=== PATIENT | female | born 1960 | race African-American/Black ===

== ENCOUNTER 2017-10-02 22:28 | Observation (INO) | payer OTHER ==
[~2017-10-02] VITALS: Ht 162.6 cm; Wt 162.4 kg
[~2017-10-02 22:28] MED LIST: ASCORBIC ACID500 M3 PO; AVAPRO300 MG PO; CARAFATE1 GM PO; COLACE100 MG PO; CRESTOR10 MG PO; CYCLOBENZAPRINE10 MG PO; D3 DOTS2000 UNIT; FERROUS SULFAT324 MG PO; FLAX SEED OIL1000 MG PO; FLEXERIL10 MG PO; FLUTICASONE PRO16 GM NS; FOLIC ACID1 MG PO; GEMFIBROZIL600 MG PO; HYDROCHLOROTHIA25 MG PO; INDOMETHACIN50 MG PO; IRBESARTAN150 MG PO; MAGNESIUM400 MG PO; MAXIMUM DAILY1 EACH PO; METFORMIN HCL500 MG PO; METOPROLOL SUCC25 MG PO; NAPROSYN500 MG PO; NEXIUM40 MG PO; NITROSTAT0.4 MG SL; NORCO 5-325 TA1 EACH PO; OMEGA 3 1,0001 EACH PO; PANTOPRAZOLE SO40 MG PO; PATANOL5 ML OD; PROZAC20 MG PO; RIZATRIPTAN10 MG PO; SUCRALFATE1 GM PO; TRAMADOL HCL50 MG; TRAMADOL HCL50 MG PO
[2017-10-02] MEDS ORDERED: GABAPENTIN100 MG PO (22:45)
[2017-10-02] MEDS ORDERED: RIZATRIPTAN10 M1 PO (22:47)
[2017-10-02] MEDS ORDERED: TOPROL XL25 MG PO (22:47)
[2017-10-02] MEDS ORDERED: VITAMIN B-12500 MCG PO (22:51)
[2017-10-02] MEDS ORDERED: PANTOPRAZOLE SO20 MG PO (22:53)
[2017-10-03] MEDS ORDERED: IBUPROFEN600 MG PO (09:20)
[2017-10-03] MEDS ORDERED: OLOPATADINE HCL5 ML OPTH (09:28)
[2017-10-03] MEDS ORDERED: HYDROCHLOROTH12.5 M1 PO (09:28)
[2017-10-04] MEDS ORDERED: AMOX TR-K CLV1 EAC1 PO (10:11)
[2017-10-04] MEDS ORDERED: ASPIRIN EC81 MG PO (10:12)
[2017-10-04] MEDS ORDERED: PSEUDOEPHEDRIN120 MG PO (10:12)
[2017-10-04] MEDS ORDERED: BENZONATATE100 MG PO (10:12)
[2017-10-04] MEDS ORDERED: GUAIFENESIN-CODE5 ML PO (10:13)
[2017-10-04] MEDS ORDERED: FLUTICASONE PRO16 GM NAS (10:13)
[2017-10-04] MEDS ORDERED: PREDNISONE20 MG PO (10:14)
[2017-10-04] MEDS ORDERED: COMBIVENT RESPIM4 GM INH (10:27)
--- NOTE | 2017-10-04 15:28 | EKG ---
[facility] [address] [place], [place] [address] Signed Sinus tachycardia with short IN Otherwise normal ECG No previous ECGs available Confirmed by ADDIE SMITH MD ([id number]) on 10/04/2017 3:28:17 PM Electronically Signed By: ADDIE SMITH MD 10/04/17 1528 PATIENT NAME: DAYA BARTLETT Electrocardiogram DATE OF : 62 PHYSICIAN: ADDIE SMITH MD REPORT #: [id number] REPORT IS CONFIDENTIAL AND NOT TO BE RELEASED WITHOUT AUTHORIZATION
== END 2017-10-04 12:45 | disposition home or self-care (01) ==
LOC: ED 22:28 → MS 22:30
PROVIDERS: ADMIT Internal Medicine
DX: J20.9 Acute bronchitis, unspecified (principal); J01.10 Acute frontal sinusitis, unspecified; E66.01 Morbid (severe) obesity due to excess calories; E11.9 Type 2 diabetes mellitus without complications; I10 Essential (primary) hypertension; G47.33 Obstructive sleep apnea (adult) (pediatric); G43.909 Migraine, unspecified, not intractable, without status migrainosus; K21.9 Gastro-esophageal reflux disease without esophagitis; I25.10 Atherosclerotic heart disease of native coronary artery without angina pectoris; R94.39 Abnormal result of other cardiovascular function study; Z68.44 Body mass index [BMI] 60.0-69.9, adult; Z79.84 Long term (current) use of oral hypoglycemic drugs; Z79.899 Other long term (current) drug therapy; Z88.1 Allergy status to other antibiotic agents; Z88.2 Allergy status to sulfonamides
CPT/HCPCS: 71045; 80053; 83690; 83880; 84484; 85025; 87070; 87205; 93005; 93010; 94640; 94644; 94660; 94762; 96372; 96374; 99285; G0378; J1650; J2930; J7512

== ENCOUNTER 2018-02-20 19:17 | Emergency (ER) | payer OTHER ==
[~2018-02-20] VITALS: Ht 162.6 cm; Wt 162.4 kg
[~2018-02-20 19:17] MED LIST changes: +AMOX TR-K CLV1 EAC1 PO; +ASPIRIN EC81 MG PO; +BENZONATATE100 MG PO; +COMBIVENT RESPIM4 GM INH; +FLUTICASONE PRO16 GM NAS; +GABAPENTIN100 MG PO; +GUAIFENESIN-CODE5 ML PO; +HYDROCHLOROTH12.5 M1 PO; +IBUPROFEN600 MG PO; +OLOPATADINE HCL5 ML OPTH; +PANTOPRAZOLE SO20 MG PO; +PREDNISONE20 MG PO; +PSEUDOEPHEDRIN120 MG PO; +RIZATRIPTAN10 M1 PO; +TOPROL XL25 MG PO; +VITAMIN B-12500 MCG PO
[2018-02-20] MEDS ORDERED: PREDNISONE10 MG PO (23:33)
--- NOTE | 2018-02-21 08:49 | EKG ---
[facility] [address] [place], [place] [address] Signed Sinus tachycardia Otherwise normal ECG When compared with ECG of 02-OCT-2017 22:36, No significant change was found Confirmed by ADDIE SMITH MD ([id number]) on 02/21/2018 8:49:41 AM Electronically Signed By: ADDIE SMITH MD 02/21/18 0849 PATIENT NAME: DAYA BARTLETT Electrocardiogram DATE OF : 62 PHYSICIAN: ADDIE SMITH MD REPORT #: [id number] REPORT IS CONFIDENTIAL AND NOT TO BE RELEASED WITHOUT AUTHORIZATION
== END 2018-02-20 23:47 | disposition home or self-care (01) ==
LOC: ED 19:17
DX: R07.89 Other chest pain (principal); E11.9 Type 2 diabetes mellitus without complications; I10 Essential (primary) hypertension; Z87.891 Personal history of nicotine dependence; Z88.1 Allergy status to other antibiotic agents; Z88.8 Allergy status to other drugs, medicaments and biological substances; Z79.899 Other long term (current) drug therapy
CPT/HCPCS: 36415; 71045; 80053; 84484; 85025; 93005; 93010; 96374; 96375; 99284; J2405; J2930; J3010

== ENCOUNTER 2021-02-25 15:00 | Emergency (ER) | payer OTHER ==
[~2021-02-25] VITALS: Ht 162.6 cm; Wt 164.7 kg
[~2021-02-25 15:00] MED LIST changes: +NORCO 7.5-3251 EACH PO; +PREDNISONE10 MG PO; +SINGULAIR10 MG PO; +SYMBICORT 16010.2 GM INH
--- OUTSIDE RECORDS SUMMARY | 2021-02-25 15:02 | XMS ---
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 EAndrez VISIT COUNT (12 MO.) 1 [facility] 1 [facility] TOTAL 2 NOTE: Visits indicate total known visits. ED/UCC VISIT TRACKING (12 MO.) [facility] COMPLAINT: - BODY ACHES [facility] DIAGNOSES: - Unspecified asthma with (acute) exacerbation - Shortness of Breath - Cough - Shortness of breath - sob INPATIENT VISIT TRACKING (12 MO.) No inpatient visits to display in this time frame [email or web address]
[2021-02-25] MEDS ORDERED: ALBUTEROL2.5 MG/3 M INH (18:07)
[2021-02-25] MEDS ORDERED: PROAIR RESPICL90 MCG INH (18:08)
[2021-02-25] MEDS ORDERED: PREDNISONE10 MG PO (18:09)
[2021-02-25] MEDS ORDERED: VITAMIN B-12500 MCG PO (18:11)
[2021-02-25] MEDS ORDERED: VITAMIN D3125 MC1 PO (18:11)
[2021-02-25] MEDS ORDERED: FLUTICASONE PRO16 GM NAS (18:12)
[2021-02-25] MEDS ORDERED: FEXOFENADINE H180 MG PO (18:12)
[2021-02-25] MEDS ORDERED: PREDNISONE20 MG PO (18:13)
[2021-02-25] MEDS ORDERED: IBUPROFEN600 MG PO (18:13)
[2021-02-25] MEDS ORDERED: MAGNESIUM OXID400 M1 PO (18:14)
[2021-02-25] MEDS ORDERED: METOPROLOL SUCC25 MG PO (18:14)
[2021-02-25] MEDS ORDERED: OMEGA-3 FISH O1 EAC4 PO (18:14)
[2021-02-25] MEDS ORDERED: CYCLOBENZAPRINE10 MG PO (21:34)
== END 2021-02-25 22:09 | disposition home or self-care (01) ==
LOC: ED 15:00
DX: M54.42 Lumbago with sciatica, left side (principal); E11.9 Type 2 diabetes mellitus without complications; I10 Essential (primary) hypertension; G47.30 Sleep apnea, unspecified; Z87.891 Personal history of nicotine dependence; Z88.2 Allergy status to sulfonamides; Z88.1 Allergy status to other antibiotic agents; Z79.899 Other long term (current) drug therapy; Z79.52 Long term (current) use of systemic steroids
CPT/HCPCS: 72100; 72131; 73502; 99284-25

== ENCOUNTER 2023-03-18 21:47 | Emergency (ER) | payer OTHER ==
[~2023-03-18] VITALS: Ht 162.6 cm; Wt 164.7 kg
[~2023-03-18 21:47] MED LIST changes: +ALBUTEROL2.5 MG/3 M INH; +FEXOFENADINE H180 MG PO; +MAGNESIUM OXID400 M1 PO; +OMEGA-3 FISH O1 EAC4 PO; +PROAIR RESPICL90 MCG INH; +VITAMIN D3125 MC1 PO
--- OUTSIDE RECORDS SUMMARY | 2023-03-18 21:51 | XMS ---
PreManage Notification: DAYA BARTLETT Security Photography Coordinator Events No recent Security Events currently on file CRITERIA MET - [facility] CARE PROVIDERS SANTOS GARZA [facility] 11/19/2020-[facility] PHONE: Unknown [facility] 03/01/2021-[facility] PHONE: [phone] Tia has no Care Guidelines for this patient. Care History Medical/Surgical 03/01/2021 [facility] - PATIENT IS [facility] ELIGIBLE, \T\middot;\T\nbsp; PLEASE REFER PATIENT TO [facility] FOR NON EMERGENT MEDICAL NEEDS. \T\middot;\T\nbsp; [facility] CAN SEE PATIENTS SAME DAY FOR APTS IF PATIENT CALLS FIRST THING IN THE MORNING. E.D. VISIT COUNT (12 MO.) 1 ESTEPHANIA Hassan TOTAL 1 NOTE: Visits indicate total known visits. ED/UCC VISIT TRACKING (12 MO.) 03/18/2023 21:48 [facility] [place] TYPE: Emergency COMPLAINT: - CP INPATIENT VISIT TRACKING (12 MO.) No inpatient visits to display in this time frame [id number]
[2023-03-19 00:32] VITALS: BP 110/69
--- NOTE | 2023-03-22 19:36 | EKG ---
[facility] [address] [place], [place] [address] Signed Sinus tachycardia with short NV Otherwise normal ECG When compared with ECG of 20-FEB-2018 19:20, NV interval has decreased Confirmed by LUKE ANDERSON MD ([id number]) on 03/22/2023 7:36:39 PM Electronically Signed By: LUKE ANDERSON 03/22/231935 PATIENT NAME: DAYA BARTLETT Electrocardiogram DATE OF : 62 PHYSICIAN: LUKE ANDERSON REPORT #: [id number] REPORT IS CONFIDENTIAL AND NOT TO BE RELEASED WITHOUT AUTHORIZATION
== END 2023-03-19 00:32 | disposition home or self-care (01) ==
LOC: ED 21:47
DX: J45.901 Unspecified asthma with (acute) exacerbation (principal); I10 Essential (primary) hypertension; E11.9 Type 2 diabetes mellitus without complications; Z87.891 Personal history of nicotine dependence; Z88.2 Allergy status to sulfonamides; Z88.1 Allergy status to other antibiotic agents; Z79.82 Long term (current) use of aspirin; Z79.899 Other long term (current) drug therapy
CPT/HCPCS: 36415; 71045; 80053; 83735; 83880; 84484; 85025; 85379; 93005; 93010; 96374; 99285 25; A9270; J2270

== ENCOUNTER 2023-05-13 19:18 | Emergency (ER) | payer OTHER ==
[~2023-05-13] VITALS: Ht 162.6 cm; Wt 148.8 kg
--- OUTSIDE RECORDS SUMMARY | ~2023-05-13 | XMS | Continuity of Care Document ---
Demographics + + + | Address | [address] | | | [place] [address] | + + + | Preferred Language | Unknown | + + + | Marital Status | Polygamous | + + + | Sikhism Affiliation | Unknown | + + + | Race | Unknown | + + + | Ethnic Group | Not or | + + + Author + + + | Author | [facility] | + + + | Organization | [facility] | + + + | Address | [address] | | | [place] [address] | + + + | Phone | | + + + Care Team Providers + + + + | Care Quality Control Manager Name | Role | Phone | + + + + Unavailable | Unavailable | + + + + Unavailable | Unavailable | + + + + Allergies and Intolerances + + + + + + | date | description | facility | reaction | severity | + + + + + + | (no date) | | [facility] | (no reaction) | (no severity) | | | Sulfamethoxazol | [facility] | | | + + + + + + | (no date) | Tetracycline | [facility] | (no reaction) | (no severity) | | | | [facility] | | | + + + + + + | (no date) | Trimethoprim | [facility] | (no reaction) | (no severity) | | | | [facility] | | | + + + + + + | (no date) | Upset stomach | [facility] | (no reaction) | (no severity) | | | | [facility] | | | + + + + + + | (no date) | Mild | [facility] | (no reaction) | (no severity) | | | | [facility] | | | + + + + + + | (no date) | Trimethoprim | [facility] | (no reaction) | (no severity) | | | | [facility] | | | + + + + + + | (no date) | | [facility] | (no reaction) | (no severity) | | | Sulfamethoxazol | [facility] | | | + + + + + + | (no date) | Tetracycline | [facility] | (no reaction) | (no severity) | | | | [facility] | | | + + + + + + | (no date) | Trimethoprim | [facility] | (no reaction) | (no severity) | | | | [facility] | | | + + + + + + | (no date) | tetracycline | [facility] | (no reaction) | (no severity) | + + + + + + | (no date) | | [facility] | (no reaction) | (no severity) | | | sulfamethoxazol | | | | | | e | | | | + + + + + + | (no date) | trimethoprim | [facility] | (no reaction) | (no severity) | + + + + + + | (no date) | Tetracycline | [facility] | (no reaction) | (no severity) | | | | [facility] | | | + + + + + + | (no date) | | [facility] | (no reaction) | (no severity) | | | Sulfamethoxazol | [facility] | | | + + + + + + Encounters No information. Functional Status No information. Immunizations + + + + | date | description | facility | + + + + | 2023-03-19 00:00 | [facility]al, [facility] | | | Injectable, Preservative | | | | Free | | + + + + Medications + + + + | date | description | facility | + + + + | 2023-03-19 00:00 | FLUOXETINE HCL | [facility] | + + + + | 2017-10-04 00:00 | PSEUDOEPHEDRINE HCL | [facility] | + + + + | 2023-03-19 00:00 | Olopatadine HCl | [facility] | + + + + | 2023-03-19 00:00 | OLOPATADINE HCL 0.1% | [facility] | + + + + | 2017-10-04 00:00 | IPRATROPIUM/ALBUTEROL | [facility] | | | SULFATE | | + + + + | 2023-03-19 00:00 | BUDESONIDE/FORMOTEROL | [facility] | | | FUMARATE | | + + + + | 2023-03-19 00:00 | DOCUSATE SODIUM | [facility] | + + + + | 2023-03-19 00:00 | MONTELUKAST SODIUM | [facility] | + + + + | 2023-03-19 00:00 | ALBUTEROL SULFATE | [facility] | + + + + | 2017-10-04 00:00 | FLUTICASONE PROPIONATE 50 | [facility] | | | MCG | | + + + + | 2023-03-19 00:00 | FLUTICASONE PROPIONATE 50 | [facility] | | | MCG | | + + + + | 2023-03-19 00:00 | FERROUS SULFATE | [facility] | + + + + | 2017-10-04 00:00 | BENZONATATE | [facility] | + + + + | 2023-03-19 00:00 | IBUPROFEN | [facility] | + + + + | 2018-02-20 00:00 | predniSONE | [facility] | + + + + | 2023-03-19 00:00 | predniSONE | [facility] | + + + + | 2023-03-19 00:00 | Magnesium Oxide | [facility] | + + + + | 2023-03-19 00:00 | HYDROCHLOROTHIAZIDE | [facility] | + + + + | 2023-03-19 00:00 | IRBESARTAN | [facility] | + + + + | 2023-03-19 00:00 | NITROGLYCERIN | [facility] | + + + + | 2023-03-19 00:00 | Cholecalciferol (Vitamin | [facility] | | | D3) | | + + + + | 2023-03-19 00:00 | PANTOPRAZOLE SODIUM | [facility] | + + + + | 2023-03-19 00:00 | MAGNESIUM OXIDE | [facility] | + + + + | 2023-03-19 00:00 | FLAXSEED OIL | [facility] | + + + + | 2023-03-19 00:00 | ASCORBIC ACID | [facility] | + + + + | 2017-10-04 00:00 | ASPIRIN | [facility] | + + + + | 2023-03-19 00:00 | FOLIC ACID | [facility] | + + + + | 2023-03-19 00:00 | GABAPENTIN | [facility] | + + + + | 2023-03-19 00:00 | GEMFIBROZIL | [facility] | + + + + | 2017-10-04 00:00 | predniSONE | [facility] | + + + + | 2023-03-19 00:00 | predniSONE | [facility] | + + + + | 2023-03-19 00:00 | RIZATRIPTAN BENZOATE | [facility] | + + + + | 2023-03-19 00:00 | CYANOCOBALAMIN (VITAMIN | [facility] | | | B-12) | | + + + + | 2023-03-19 00:00 | RIZATRIPTAN BENZOATE | [facility] | + + + + | 2023-03-19 00:00 | SUCRALFATE | [facility] | + + + + | 2017-10-04 00:00 | AMOXICILLIN/POTASSIUM CLAV | [facility] | | | | | + + + + | 2023-03-19 00:00 | ALBUTEROL SULFATE | [facility] | + + + + | 2023-03-19 00:00 | CHOLECALCIFEROL (VITAMIN | [facility] | | | D3) | | + + + + | 2021-02-25 00:00 | CYCLOBENZAPRINE HCL | [facility] | + + + + | 2023-03-19 00:00 | CYCLOBENZAPRINE HCL | [facility] | + + + + | 2023-03-19 00:00 | OMEGA-3/DHA/EPA/FISH OIL | [facility] | + + + + | 2023-03-19 00:00 | TRAMADOL HCL | [facility] | + + + + | 2013-11-22 00:00 | HYDROCODONE | [facility] | | | BIT/ACETAMINOPHEN | | + + + + | 2019-04-11 00:00 | HYDROCODONE | [facility] | | | BIT/ACETAMINOPHEN | | + + + + | 2023-03-19 00:00 | METFORMIN HCL | [facility] | + + + + | 2023-03-19 00:00 | METOPROLOL SUCCINATE | [facility] | + + + + | 2023-03-19 00:00 | METOPROLOL SUCCINATE | [facility] | + + + + | 2017-10-04 00:00 | GUAIFENESIN/CODEINE | [facility] | + + + + | 2023-03-19 00:00 | FEXOFENADINE HCL | [facility] | + + + + Problems + + + + | date | description | facility | + + + + | 2015-07-25 00:00 | Peptic disease | [facility] | + + + + | 2016-02-04 00:00 | Chest pain | [facility] | + + + + | 2016-09-24 00:00 | Ankle pain | [facility] | + + + + | 2017-10-04 00:00 | Acute bronchitis with | [facility] | | | bronchospasm | | + + + + | 2022-12-06 10:39 | OTHER NONSPECIFIC ABNORMAL | [facility] | | | FINDING OF LUNG FIELD | | + + + + | 2022-12-06 10:39 | ENCNTR SCREEN FOR | [facility] | | | MALIGNANT NEOPLASM OF | | | | RESPIRATORY ORGANS | | + + + + | 2022-12-06 10:39 | PERSONAL HISTORY OF | [facility] | | | NICOTINE DEPENDENCE | | + + + + | 2023-03-18 21:48 | TYPE 2 DIABETES MELLITUS | [facility] | | | WITHOUT COMPLICATIONS | | + + + + | 2023-03-18 21:48 | Essential (primary) | [facility] | | | hypertension | | + + + + | 2023-03-18 21:48 | UNSPECIFIED ASTHMA WITH | [facility] | | | (ACUTE) EXACERBATION | | + + + + | 2023-03-18 21:48 | SHORTNESS OF BREATH | [facility] | + + + + | 2023-03-18 21:48 | 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 | + + + + Procedures No information. Results/Labs +--------+--------+ +---------+--------+---------+ | test | date | facility | value | unit | notes | +--------+--------+ +---------+--------+---------+ + + | Result panel 1 | + + + + + +--------+ + + | | 2023-03-18 | [facility] | 14.0 | (missing) | (missing) | | (unavailable | 21:57:07 [facility] | | | | + + + +--------+ + + + + | Result panel 2 | + + + + + +--------+ + + | | 2023-03-18 | [facility] | 63.1 | (missing) | (missing) | | (unavailable | [facility]:57:07 [facility] | | | | + + + +--------+ + + + + | Result panel 3 | + + + + + +--------+ + + | | 2023-03-18 | [facility] | 25.9 | (missing) | (missing) | | (unavailable | [facility]:57:07 [facility] | | | | + + + +--------+ + + + + | Result panel 4 | + + + + + +-------+ + + | | 2023-03-18 | [facility] | 5.3 | (missing) | (missing) | | (unavailable | :57:07 | [facility] | | | | + + + +-------+ + + + + | Result panel 5 | + + + + + +-------+ + + | | 2023-03-18 | [facility] | 2.2 | (missing) | (missing) | | (unavailable | [facility]:57:07 [facility] | | | | + + + +-------+ + + + + | Result panel 6 | + + + + + +-------+ + + | | 2023-03-18 | [facility] | 3.5 | (missing) | (missing) | | (unavailable | [facility]:57:07 [facility] | | | | + + + +-------+ + + + + | Result panel 7 | + + + + + +--------+ + + | | 2023-03-18 | [facility] | 0.32 | (missing) | (missing) | | (unavailable | [facility]:57:07 [facility] | | | | + + + +--------+ + + + + | Result panel 8 | + + + + + +-------+---------+ + | | 2023-03-18 | [facility] | 103 | mg/dL | (missing) | | (unavailable | [facility]:57:07 [facility] | | | | + + + +-------+---------+ + + + | Result panel 9 | + + + + + +------+---------+ + | | 2023-03-18 | [facility] | 16 | mg/dL | (missing) | | (unavailable | [facility]:57:07 [facility] | | | | + + + +------+---------+ + + + | Result panel 10 | + + + + + +--------+---------+ + | | 2023-03-18 | [facility] | 1.09 | mg/dL | (missing) | | (unavailable | [facility]:57:07 [facility] | | | | + + + +--------+---------+ + + + | Result panel 11 | + + + + + +------+ + + | | 2023-03-18 | [facility] | 58 | (missing) | (missing) | | (unavailable | [facility]:57:07 [facility] | | | | + + + +------+ + + + + | Result panel 12 | + + + + + +--------+ + + | | 2023-03-18 | [facility] | 5.19 | (missing) | (missing) | | (unavailable | [facility]:57:07 [facility] | | | | + + + +--------+ + + + + | Result panel 13 | + + + + + +---------+ + + | | 2023-03-18 | [facility] | 14.67 | (missing) | (missing) | | (unavailable | [facility]:57:07 [facility] | | | | + + + +---------+ + + + + | Result panel 14 | + + + + + +-------+ + + | | 2023-03-18 | [facility] | 139 | (missing) | (missing) | | (unavailable | [facility]:57:07 [facility] | | | | + + + +-------+ + + + + | Result panel 15 | + + + + + +-------+ + + | | 2023-03-18 | [facility] | 3.9 | (missing) | (missing) | | (unavailable | [facility]:57:07 [facility] | | | | + + + +-------+ + + + + | Result panel 16 | + + + + + +-------+ + + | | 2023-03-18 | [facility] | 102 | (missing) | (missing) | | (unavailable | [facility]:57:07 [facility] | | | | + + + +-------+ + + + + | Result panel 17 | + + + + + +------+ + + | | 2023-03-18 | [facility] | 24 | (missing) | (missing) | | (unavailable | [facility]:57:07 [facility] | | | | + + + +------+ + + + + | Result panel 18 | + + + + + +--------+ + + | | 2023-03-18 | [facility] | 16.9 | (missing) | (missing) | | (unavailable | [facility]:57:07 [facility] | | | | + + + +--------+ + + + + | Result panel 19 | + + + + + +-------+---------+ + | | 2023-03-18 | [facility] | 9.5 | mg/dL | (missing) | | (unavailable | [facility]:57:07 [facility] | | | | + + + +-------+---------+ + + + | Result panel 20 | + + + + + +-------+---------+ + | | 2023-03-18 | [facility] | 1.9 | mg/dL | (missing) | | (unavailable | [facility]:57:07 [facility] | | | | + + + +-------+---------+ + + + | Result panel 21 | + + + + + +-------+ + + | | 2023-03-18 | [facility] | 8.3 | (missing) | (missing) | | (unavailable | [facility]:57:07 [facility] | | | | + + + +-------+ + + + + | Result panel 22 | + + + + + +-------+ + + | | 2023-03-18 | [facility] | 3.6 | (missing) | (missing) | | (unavailable | [facility]:57:07 [facility] | | | | + + + +-------+ + + + + | Result panel 23 | + + + + + +--------+ + + | | 2023-03-18 | [facility] | 13.5 | (missing) | (missing) | | (unavailable | [facility]:57:07 [facility] | | | | + + + +--------+ + + + + | Result panel 24 | + + + + + +-------+ + + | | 2023-03-18 | [facility] | 4.7 | (missing) | (missing) | | (unavailable | [facility]:57:07 [facility] | | | | + + + +-------+ + + + + | Result panel 25 | + + + + + +--------+ + + | | 2023-03-18 | [facility] | 0.77 | (missing) | (missing) | | (unavailable | [facility]:57:07 [facility] | | | | + + + +--------+ + + + + | Result panel 26 | + + + + + +-------+ + + | | 2023-03-18 | [facility] | 0.5 | (missing) | (missing) | | (unavailable | [facility]:57:07 [facility] | | | | + + + +-------+ + + + + | Result panel 27 | + + + + + +------+ + + | | 2023-03-18 | [facility] | 23 | (missing) | (missing) | | (unavailable | :57:07 | [facility] | | | | + + + +------+ + + + + | Result panel 28 | + + + + + +------+ + + | | 2023-03-18 | [facility] | 37 | (missing) | (missing) | | (unavailable | [facility]:57:07 [facility] | | | | + + + +------+ + + + + | Result panel 29 | + + + + + +------+ + + | | 2023-03-18 | [facility] | 89 | (missing) | (missing) | | (unavailable | :57:07 [facility] | | | | + + + +------+ + + + + | Result panel 30 | + + + + + +--------+ + + | | 2023-03-18 | [facility] | 41.7 | (missing) | (missing) | | (unavailable | :57:07 [facility] | | | | + + + +--------+ + + + + | Result panel 31 | + + + + + +--------+ + + | | 2023-03-18 | [facility] | 80.4 | (missing) | (missing) | | (unavailable | [facility]:57:07 [facility] | | | | + + + +--------+ + + + + | Result panel 32 | + + + + + +--------+ + + | | 2023-03-18 | [facility] | 26.0 | (missing) | (missing) | | (unavailable | [facility]:57:07 [facility] | | | | + + + +--------+ + + + + | Result panel 33 | + + + + + +--------+ + + | | 2023-03-18 | [facility] | 32.3 | (missing) | (missing) | | (unavailable | [facility]:57:07 [facility] | | | | + + + +--------+ + + + + | Result panel 34 | + + + + + +--------+ + + | | 2023-03-18 | [facility] | 15.1 | (missing) | (missing) | | (unavailable | [facility]:57:07 [facility] | | | | + + + +--------+ + + + + | Result panel 35 | + + + + + +-------+ + + | | 2023-03-18 | [facility] | 307 | (missing) | (missing) | | (unavailable | [facility]:57:07 [facility] | | | | + + + +-------+ + + + + | Result panel 36 | + + + + + +--------+ + + | | 2023-03-18 | [facility] | <4.0 | (missing) | (missing) | | (unavailable | 23:20:07 | [facility] | | | | + + + +--------+ + + Social History No information. Vital Signs + + + +---------+ | date | measurement | value | units | + + + +---------+ | 2023-03-18 00:00 | BMI | 62.3 | kg/m2 | + + + +---------+ | 2023-03-18 00:00 | height_metric | 162.56 | cm | + + + +---------+ | 2023-03-18 00:00 | height_standard | 64 | in | + + + +---------+ | 2023-03-18 00:00 | weight_metric | 164.65 | kg | + + + +---------+ | 2023-03-18 00:00 | weight_standard | 363 | lb | + + + +---------+ | 2023-03-19 00:00 | BP_diastolic | 69 | mmHg | + + + +---------+ | 2023-03-19 00:00 | BP_systolic | 110 | mmHg | + + + +---------+ | 2023-03-19 00:00 | heart_rate | 81 | /min | + + + +---------+ | 2023-03-19 00:00 | o2_saturation | 92 | % | + + + +---------+ | 2023-03-19 00:00 | respiration_rate | 19 | /min | + + + +---------+ | 2023-03-19 00:00 | temperature_metric | 36.5 | C | | | | | | + + + +---------+ | 2023-03-19 00:00 | | 97.7 | F | | | temperature_standar | | | | | d | | | + + + +---------+"
--- OUTSIDE RECORDS SUMMARY | ~2023-05-13 | XMS | Continuity of Care Document ---
Demographics + + + | Address | [address] | | | [place] [address] | + + + | Preferred Language | Unknown | + + + | Marital Status | Polygamous | + + + | Evangelical Affiliation | Unknown | + + + | Race | Unknown | + + + | Ethnic Group | Not or | + + + Author + + + | Author | [facility] | + + + | Organization | [facility] | + + + | Address | [address] | | | [place] [address] | + + + | Phone | | + + + Care Team Providers + + + + | Care Capacity Analyst Name | Role | Phone | + [...] 2023-03-19 00:00 | Influ[facility], [facility]al, | [facility] | | | Injectable, Preservative | | | | Free | | + + + + Medications + + + + | date | description | facility | + + + + | 2023-03-19 00:00 | FLUOXETINE HCL | [facility] | + + + + | 2017-10-04 00:00 | PSEUDOEPHEDRINE HCL | [facility] | + + + + | 2023-03-19 00:00 | Olopatadine HCl | [facility] | + + + + | 2023-03-19 00:00 | OLOPATADINE HCL 0.1% | [facility] | + + + + | 2017-10-04 00:00 | IPRATROPIUM/ALBUTEROL | [facility] | | | SULFATE | | + + + + | 2023-03-19 00:00 | BUDESONIDE/FORMOTEROL | [facility] | | | FUMARATE | | + + + + | 2023-03-19 00:00 | DOCUSATE SODIUM | [facility] | + + + + | 2023-03-19 00:00 | MONTELUKAST SODIUM | [facility] | + + + + | 2023-03-19 00:00 | ALBUTEROL SULFATE | [facility] | + + + + | 2017-10-04 00:00 | FLUTICASONE PROPIONATE 50 | [facility] | | | MCG | | + + + + | 2023-03-19 00:00 | FLUTICASONE PROPIONATE 50 | [facility] | | | MCG | | + + + + | 2023-03-19 00:00 | FERROUS SULFATE | [facility] | + + + + | 2017-10-04 00:00 | BENZONATATE | [facility] | + + + + | 2023-03-19 00:00 | IBUPROFEN | [facility] | + + + + | 2018-02-20 00:00 | predniSONE | [facility] | + + + + | 2023-03-19 00:00 | predniSONE | [facility] | + + + + | 2023-03-19 00:00 | Magnesium Oxide | [facility] | + + + + | 2023-03-19 00:00 | HYDROCHLOROTHIAZIDE | [facility] | + + + + | 2023-03-19 00:00 | IRBESARTAN | [facility] | + + + + | 2023-03-19 00:00 | NITROGLYCERIN | [facility] | + + + + | 2023-03-19 00:00 | Cholecalciferol (Vitamin | [facility] | | | D3) | | + + + + | 2023-03-19 00:00 | PANTOPRAZOLE SODIUM | [facility] | + + + + | 2023-03-19 00:00 | MAGNESIUM OXIDE | [facility] | + + + + | 2023-03-19 00:00 | FLAXSEED OIL | [facility] | + + + + | 2023-03-19 00:00 | ASCORBIC ACID | [facility] | + + + + | 2017-10-04 00:00 | ASPIRIN | [facility] | + + + + | 2023-03-19 00:00 | FOLIC ACID | [facility] | + + + + | 2023-03-19 00:00 | GABAPENTIN | [facility] | + + + + | 2023-03-19 00:00 | GEMFIBROZIL | [facility] | + + + + | 2017-10-04 00:00 | predniSONE | [facility] | + + + + | 2023-03-19 00:00 | predniSONE | [facility] | + + + + | 2023-03-19 00:00 | RIZATRIPTAN BENZOATE | [facility] | + + + + | 2023-03-19 00:00 | CYANOCOBALAMIN (VITAMIN | [facility] | | | B-12) | | + + + + | 2023-03-19 00:00 | RIZATRIPTAN BENZOATE | [facility] | + + + + | 2023-03-19 00:00 | SUCRALFATE | [facility] | + + + + | 2017-10-04 00:00 | AMOXICILLIN/POTASSIUM CLAV | [facility] | | | | | + + + + | 2023-03-19 00:00 | ALBUTEROL SULFATE | [facility] | + + + + | 2023-03-19 00:00 | CHOLECALCIFEROL (VITAMIN | [facility] | | | D3) | | + + + + | 2021-02-25 00:00 | CYCLOBENZAPRINE HCL | [facility] | + + + + | 2023-03-19 00:00 | CYCLOBENZAPRINE HCL | [facility] | + + + + | 2023-03-19 00:00 | OMEGA-3/DHA/EPA/FISH OIL | [facility] | + + + + | 2023-03-19 00:00 | TRAMADOL HCL | [facility] | + + + + | 2013-11-22 00:00 | HYDROCODONE | [facility] | | | BIT/ACETAMINOPHEN | | + + + + | 2019-04-11 00:00 | HYDROCODONE | [facility] | | | BIT/ACETAMINOPHEN | | + + + + | 2023-03-19 00:00 | METFORMIN HCL | [facility] | + + + + | 2023-03-19 00:00 | METOPROLOL SUCCINATE | [facility] | + + + + | 2023-03-19 00:00 | METOPROLOL SUCCINATE | [facility] | + + + + | 2017-10-04 00:00 | GUAIFENESIN/CODEINE | [facility] | + + + + | 2023-03-19 00:00 | FEXOFENADINE HCL | [facility] | + + + + Problems + + + + | date | description | facility | + + + + | 2015-07-25 00:00 | Peptic disease | [facility] | + + + + | 2016-02-04 00:00 | Chest pain | [facility] | + + + + | 2016-09-24 00:00 | Ankle pain | [facility] | + + + + | 2017-10-04 00:00 | Acute bronchitis with | [facility] | | | bronchospasm | | [...] + + + | 2023-03-18 21:48 | 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
--- OUTSIDE RECORDS SUMMARY | 2023-05-13 19:23 | XMS ---
PreManage Notification: DAYA BARTLETT Security Development Eng Events No recent Security Events currently on file CRITERIA MET - [facility] CARE PROVIDERS [facility] 03/01/2021-[facility] PHONE: [phone] SANTOS GARZA [facility] 11/19/2020-Current PHONE: Unknown Tia has no Care Guidelines for this patient. Care History Medical/Surgical 03/01/2021 [facility], \T\middot;\T\nbsp; PLEASE REFER PATIENT TO [facility] FOR NON EMERGENT MEDICAL NEEDS. \T\middot;\T\nbsp; [facility] CAN SEE PATIENTS SAME DAY FOR APTS IF PATIENT CALLS FIRST THING IN THE MORNING. E.D. VISIT COUNT (12 MO.) [address] [facility] [address] [facility] TOTAL 2 NOTE: Visits indicate total known visits. 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
[2023-05-13] MEDS ORDERED: AMOX TR-K CLV1 EAC1 PO (21:08)
[2023-05-13 21:24] VITALS: BP 125/58
== END 2023-05-13 21:22 | disposition home or self-care (01) ==
LOC: ED 19:18
DX: K04.7 Periapical abscess without sinus (principal); E11.9 Type 2 diabetes mellitus without complications; I10 Essential (primary) hypertension; Z87.891 Personal history of nicotine dependence; Z88.8 Allergy status to other drugs, medicaments and biological substances; Z79.82 Long term (current) use of aspirin; Z79.899 Other long term (current) drug therapy
CPT/HCPCS: 41800; 99283-25; A9270

== ENCOUNTER 2024-02-19 20:12 | Emergency (ER) | payer OTHER ==
[~2024-02-19] VITALS: Ht 162.6 cm; Wt 154.0 kg
[2024-02-19] MEDS ORDERED: SUMAtriptan succinate 6 MG/0.5 ML VIAL SUB-Q ONE (20:45)
[2024-02-19] MEDS ORDERED: LACTATED RINGER'S 1,000 ML IV ONE (20:45)
[2024-02-19] MEDS ORDERED: PROCHLORPERAZINE EDISYLATE 10 MG/2 ML VIAL IV ONE (20:45)
[2024-02-19] MEDS ORDERED: METOCLOPRAMIDE HCL 10 MG/2 ML SDV IV ONE (20:45)
[2024-02-19] MEDS ORDERED: KETOROLAC TROMETHAMINE 30 MG/ML VIAL IV ONE (20:45)
[2024-02-19] MEDS ORDERED: diphenhydrAMINE HCL 50 MG/ML VIAL IV ONE (21:00)
[2024-02-19] MEDS ORDERED: IMITREX25 MG PO (22:47)
[2024-02-19] MEDS ORDERED: ONDANSETRON 4 MG HOME.PACK SL ONE (23:00)
[2024-02-19 23:39] VITALS: BP 151/82
== END 2024-02-19 23:39 | disposition home or self-care (01) ==
LOC: ED 20:12
DX: R51.9 Headache, unspecified (principal); E11.9 Type 2 diabetes mellitus without complications; I10 Essential (primary) hypertension; Z87.891 Personal history of nicotine dependence; Z88.8 Allergy status to other drugs, medicaments and biological substances; Z79.82 Long term (current) use of aspirin; Z79.899 Other long term (current) drug therapy; Z79.84 Long term (current) use of oral hypoglycemic drugs
CPT/HCPCS: A9270; J1200; J1885; J2765; J3030; J7121

== ENCOUNTER 2024-05-07 20:32 | Emergency (ER) | payer OTHER ==
[~2024-05-07] VITALS: Ht 162.6 cm; Wt 150.0 kg
[~2024-05-07 20:32] MED LIST changes: +IMITREX25 MG PO
[2024-05-07] MEDS ORDERED: OZEMPIC2 MG/0.75 SQ (20:51)
[2024-05-07] MEDS ORDERED: diphenhydrAMINE HCL 50 MG/ML VIAL IV ONE (21:15)
[2024-05-07] MEDS ORDERED: METOCLOPRAMIDE HCL 10 MG/2 ML SDV IV ONE (21:15)
[2024-05-07] MEDS ORDERED: LACTATED RINGER'S 1,000 ML IV ONE (21:15)
[2024-05-07] MEDS ORDERED: KETOROLAC TROMETHAMINE 30 MG/ML VIAL IV ONE (21:15)
[2024-05-07 22:42] VITALS: BP 121/69
== END 2024-05-07 22:41 | disposition home or self-care (01) ==
LOC: ED 20:32
DX: G43.909 Migraine, unspecified, not intractable, without status migrainosus (principal); I10 Essential (primary) hypertension; E11.9 Type 2 diabetes mellitus without complications; E66.01 Morbid (severe) obesity due to excess calories; Z68.43 Body mass index [BMI] 50.0-59.9, adult; Z87.891 Personal history of nicotine dependence; Z88.2 Allergy status to sulfonamides; Z88.1 Allergy status to other antibiotic agents; Z79.82 Long term (current) use of aspirin; Z79.899 Other long term (current) drug therapy
CPT/HCPCS: 96374; 96375; 99283-25; J1200; J1885; J2765; J7121

== ENCOUNTER 2025-04-04 15:58 | Emergency (ER) | payer OTHER ==
[~2025-04-04] VITALS: Ht 162.6 cm; Wt 155.0 kg
[~2025-04-04 15:58] MED LIST changes: +OZEMPIC2 MG/0.75 SQ
[2025-04-04] MEDS ORDERED: IRBESARTAN150 MG PO (16:18)
[2025-04-04] MEDS ORDERED: METFORMIN HCL1000 M1 PO (16:18)
[2025-04-04] MEDS ORDERED: METAMUCIL660 GM (16:18)
[2025-04-04] MEDS ORDERED: MIRALAX17 GM PO (16:19)
[2025-04-04] MEDS ORDERED: AJOVY AUTO225 MG/1.5 SQ (16:19)
[2025-04-04 16:51] LABS: BASOPHILS 0.2 % (0.1-1.2); EOSINOPHILS 0.6 % (0.7-5.8); LYMPHOCYTES 29.4 % (19.3-51.7); MCH 25.3 PG (25.6-32.2); MCHC 30.7 g/dL (32.2-35.5); MCV 82.2 fL (79.4-94.8); MONOCYTES 7.1 % (4.7-12.5); NEUTROPHILS 62.1 % (34.0-71.1); RBC 4.95 M/uL (3.93-5.22)
[2025-04-04] MEDS ORDERED: SODIUM CHLORIDE 0.9% 1,000 ML IV ONE (17:00)
[2025-04-04] MEDS ORDERED: HYDROmorphone HCL 1 MG/ML SYR IV ONE (17:00)
[2025-04-04 17:02] LABS: ALT (SGPT) 25.0 U/L (14-59); AST (SGOT) 15.0 U/L (15-37); GLOMERULAR FILTRATION RATE,EST 76.0 mL/min (>60); PROTEIN, TOTAL 7.0 g/dL (6.4-8.2); UREA NITROGEN 21.0 mg/dL (7-18)
[2025-04-04 18:25] LABS: BLOOD/HGB, URINE TRACE-I (Negative); KETONE, URINE NEGATIVE (Negative); LEUK ESTERASE, URINE MODERATE (negative); NITRITE, URINE NEGATIVE (negative)
[2025-04-04 18:33] LABS: CRYSTALS, URINE NONE SEEN (0-1+); EPITHELIAL CELLS, URINE SQUAMOUS 2+ /lpf (0-1+)
[2025-04-04 18:34] LABS: BACTERIA, URINE 1+ /hpf (negative); CASTS, URINE NONE SEEN \\lpf; REFLEX CULTURE, URINE No (No)
[2025-04-04] MEDS ORDERED: CEFDINIR300 MG PO (18:51)
[2025-04-04 18:52] VITALS: BP 123/64
[2025-04-04] MEDS ORDERED: CEFDINIR 300 MG CAP PO ONE (19:00)
== END 2025-04-04 19:07 | disposition home or self-care (01) ==
LOC: ED 15:58
PROVIDERS: Emergency Medicine
DX: N39.0 Urinary tract infection, site not specified (principal); I10 Essential (primary) hypertension; E11.9 Type 2 diabetes mellitus without complications; G47.33 Obstructive sleep apnea (adult) (pediatric); Z87.891 Personal history of nicotine dependence; Z88.2 Allergy status to sulfonamides; Z79.84 Long term (current) use of oral hypoglycemic drugs; Z79.82 Long term (current) use of aspirin; Z79.899 Other long term (current) drug therapy
CPT/HCPCS: 36415; 74177; 80053; 81001; 83605; 83690; 85025; 96374; 96375; 99284-25; J1171; J2405; J7030; Q9967

== ENCOUNTER 2025-07-04 16:41 | Emergency (ER) | payer OTHER ==
[~2025-07-04] VITALS: Ht 162.6 cm; Wt 151.1 kg
[~2025-07-04 16:41] MED LIST changes: +AJOVY AUTO225 MG/1.5 SQ; +CEFDINIR300 MG PO; +METAMUCIL660 GM; +METFORMIN HCL1000 M1 PO; +MIRALAX17 GM PO
[2025-07-04 20:24] LABS: BLOOD/HGB, URINE TRACE-I (Negative); KETONE, URINE NEGATIVE (Negative); LEUK ESTERASE, URINE NEGATIVE (negative); NITRITE, URINE NEGATIVE (negative)
[2025-07-04 20:30] LABS: BACTERIA, URINE NONE SEEN /hpf (negative); CASTS, URINE NONE SEEN \\lpf; CRYSTALS, URINE NONE SEEN (0-1+); EPITHELIAL CELLS, URINE SQUAMOUS 3+ /lpf (0-1+); REFLEX CULTURE, URINE No (No)
[2025-07-04] MEDS ORDERED: HYDROmorphone HCL 1 MG/ML SYR IV PRN (20:30)
[2025-07-04 20:43] LABS: BASOPHILS 0.2 % (0.1-1.2); EOSINOPHILS 0.1 % (0.7-5.8); LYMPHOCYTES 17.3 % (19.3-51.7); MCH 25.4 PG (25.6-32.2); MCHC 31.7 g/dL (32.2-35.5); MCV 80.3 fL (79.4-94.8); MONOCYTES 5.8 % (4.7-12.5); NEUTROPHILS 76.3 % (34.0-71.1); RBC 5.19 M/uL (3.93-5.22)
[2025-07-04 20:58] LABS: ALT (SGPT) 20.0 U/L (14-59); AST (SGOT) 15.0 U/L (15-37); GLOMERULAR FILTRATION RATE,EST 97.0 mL/min (>60); PROTEIN, TOTAL 7.5 g/dL (6.4-8.2); UREA NITROGEN 15.0 mg/dL (7-18)
[2025-07-04] MEDS ORDERED: HYDROCODON-ACE1 EA10 PO (22:15)
[2025-07-04] MEDS ORDERED: CIPRO500 MG PO (22:15)
[2025-07-04] MEDS ORDERED: METRONIDAZOLE500 MG PO (22:15)
[2025-07-04] MEDS ORDERED: HYDROCODONE BIT/ACETAMINOPHEN 5/325 MG 1 TAB HOME.PACK PO PRN (22:15)
[2025-07-05 00:15] VITALS: BP 119/84
== END 2025-07-05 00:19 | disposition home or self-care (01) ==
LOC: ED 16:41
PROVIDERS: Emergency Medicine
DX: K51.30 Ulcerative (chronic) rectosigmoiditis without complications (principal); I10 Essential (primary) hypertension; E11.9 Type 2 diabetes mellitus without complications; Z87.891 Personal history of nicotine dependence; Z88.2 Allergy status to sulfonamides; Z88.8 Allergy status to other drugs, medicaments and biological substances
CPT/HCPCS: 36415; 74177; 80053; 81001; 83690; 85025; 96374; 96375; 96376; 99284-25; A9270; J0696; J1171; J2405; Q9967